=== PATIENT | male | born 1960 | race Caucasian/White ===

== ENCOUNTER 2019-02-02 14:51 | Inpatient (IN) | payer BC ==
[2019-02-02] MEDS ORDERED: SODIUM CHLORIDE 0.9% 1,000 ML IV STA ×2 (16:12)
--- NOTE | 2019-02-02 16:22 | ED ---
General Adult HPI - General Chief complaint: Extremity Problem,Nontraumatic Stated complaint: Leg infection Time Seen by Provider: 02/02/19 15:59 Source: patient, RN notes reviewed Mode of arrival: ambulatory Limitations: no limitations - History of Present Illness Initial comments: Patient is a 58-year-old male presented to the emergency room today with chief complaint of infection to the right lower extremity. Patient does admit that he's had similar infections in the past and usually antibiotics does work to improve it. He does not that he's been on antibiotics last 2 weeks. States currently on clindamycin over this past week. He states he was on a previous antibiotic but does not remember the name. He did follow-up family doctor today was advised come here to emergency room for admission for IV antibiotics and consult infectious disease. Patient does admit to pain locally to the area. Does admit redness. Rates pain 2/10. Denies any other complaints or symptoms. Patient denies any recent fever, chills, shortness of breath, chest pain, back pain, abdominal pain, nausea or vomiting, headaches or visual changes, or any other complaints. - Related Data Home Medications Medication Instructions Recorded Confirmed Albuterol Inhaler [Ventolin Hfa 1 - 2 puff INHALATION RT-Q6H PRN 02/02/19 Inhaler] Albuterol Nebulized [Ventolin 2.5 mg INHALATION RT-QID PRN 02/02/19 02/02/19 Nebulized] Fluticasone/Salmeterol [Advair 1 puff INHALATION RT-BID 02/02/19 02/02/19 250-50 Diskus] Allergies Allergy/AdvReac Type Severity Reaction Status Date / Time No Known Allergies Allergy Verified 02/02/19 16:20 Review of Systems ROS Statement: Those systems with pertinent positive or pertinent negative responses have been documented in the HPI. ROS Other: All systems not noted in ROS Statement are negative. Past Medical History Past Medical History: COPD History of Any Multi-Drug Resistant Organisms: None Reported Past Surgical History: Orthopedic Surgery Additional Past Surgical History / Comment(s): Laser, Spider bite Past Psychological History: No Psychological Hx Reported Smoking Status: Former smoker Past Alcohol Use History: Occasional Past Drug Use History: None Reported General Exam - General Exam Comments Initial Comments: General: The patient is awake and alert, in no distress, and does not appear acutely ill. Eye: There is normal conjunctiva bilaterally. No signs of icterus. Ears, nose, mouth and throat: There are moist mucous membranes and no oral lesions. Neck: The neck is supple, there is no tenderness or JVD. Cardiovascular: There is a regular rate and rhythm. No murmur, rub or gallop is appreciated. Respiratory: Lungs are clear to auscultation, respirations are non-labored, breath sounds are equal. No wheezes, stridor, rales, or rhonchi. Musculoskeletal: Normal ROM. Strength 5/5. Sensation intact. Pedal pulse 2+. Neurological: A&O x 3. CN II-XII intact, There are no obvious motor or sensory deficits. Coordination appears grossly intact. Speech is normal. Skin: Patient does have area of redness to the anterior aspect of left palafox. There is significant swelling when compared bilaterally to the left leg. Patient does have some tenderness to the posterior aspect of the calf. Psychiatric: Cooperative, appropriate mood & affect, normal judgment. Limitations: no limitations Course Vital Signs 02/02/19 15:18 Temperature 97.8 F Pulse Rate 75 Respiratory 20 Rate Blood Pressure 151/82 O2 Sat by Pulse 99 Oximetry Medical Decision Making - Medical Decision Making 58-year-old male presented to the emergency room immediately physician for out patient failure of cellulitis to the right lower leg. Also was obtained negative for any evidence of DVT. Patient's labs been reviewed. Patient started on Rocephin, vancomycin here in emergency room. Patient admitted to the hospital with consult to infectious disease. - Lab Data Result diagrams: 02/02/19 16:35 02/02/19 16:35 Lab Results 02/02/19 02/02/19 02/02/19 Range/Units 16:35 16:35 16:35 WBC 6.3 (3.8-10.6) k/uL RBC 5.21 (4.30-5.90) m/uL Hgb 14.8 (13.0-17.5) gm/dL Hct 46.8 (39.0-53.0) % MCV 89.7 (80.0-100.0) fL MCH 28.4 (25.0-35.0) pg MCHC 31.7 (31.0-37.0) g/dL RDW 13.2 (11.5-15.5) % Plt Count 355 (150-450) k/uL Neutrophils % 73 % Lymphocytes % 15 % Monocytes % 8 % Eosinophils % 1 % Basophils % 1 % Neutrophils # 4.6 (1.3-7.7) k/uL Lymphocytes # 0.9 L (1.0-4.8) k/uL Monocytes # 0.5 (0-1.0) k/uL Eosinophils # 0.1 (0-0.7) k/uL Basophils # 0.0 (0-0.2) k/uL Sodium 139 (137-145) mmol/L Potassium 4.5 (3.5-5.1) mmol/L Chloride 104 (98-107) mmol/L Carbon Dioxide 27 (22-30) mmol/L Anion Gap 8 mmol/L BUN 13 (9-20) mg/dL Creatinine 0.61 L (0.66-1.25) mg/dL Est GFR (CKD-EPI)AfAm >90 (>60 ml/min/1.73 sqM) Est GFR (CKD-EPI)NonAf >90 (>60 ml/min/1.73 sqM) Glucose 81 (74-99) mg/dL Plasma Lactic Acid Mike 1.1 (0.7-2.0) mmol/L Calcium 9.3 (8.4-10.2) mg/dL Total Bilirubin 0.7 (0.2-1.3) mg/dL AST 90 H (17-59) U/L ALT 81 H (21-72) U/L Alkaline Phosphatase 74 (38-126) U/L Total Protein 7.5 (6.3-8.2) g/dL Albumin 4.0 (3.5-5.0) g/dL Urine Color Urine Appearance (Clear) Urine pH (5.0-8.0) Ur Specific [place] (1.001-1.035) Urine Protein (Negative) Urine Glucose (UA) (Negative) Urine Ketones (Negative) Urine Blood (Negative) Urine Nitrite (Negative) Urine Bilirubin (Negative) Urine Urobilinogen (<2.0) mg/dL Ur Leukocyte Esterase (Negative) 02/02/19 Range/Units 16:35 WBC (3.8-10.6) k/uL RBC (4.30-5.90) m/uL Hgb (13.0-17.5) gm/dL Hct (39.0-53.0) % MCV (80.0-100.0) fL MCH (25.0-35.0) pg MCHC (31.0-37.0) g/dL RDW (11.5-15.5) % Plt Count (150-450) k/uL Neutrophils % % Lymphocytes % % Monocytes % % Eosinophils % % Basophils % % Neutrophils # (1.3-7.7) k/uL Lymphocytes # (1.0-4.8) k/uL Monocytes # (0-1.0) k/uL Eosinophils # (0-0.7) k/uL Basophils # (0-0.2) k/uL Sodium (137-145) mmol/L Potassium (3.5-5.1) mmol/L Chloride (98-107) mmol/L Carbon Dioxide (22-30) mmol/L Anion Gap mmol/L BUN (9-20) mg/dL Creatinine (0.66-1.25) mg/dL Est GFR (CKD-EPI)AfAm (>60 ml/min/1.73 sqM) Est GFR (CKD-EPI)NonAf (>60 ml/min/1.73 sqM) Glucose (74-99) mg/dL Plasma Lactic Acid Mike (0.7-2.0) mmol/L Calcium (8.4-10.2) mg/dL Total Bilirubin (0.2-1.3) mg/dL AST (17-59) U/L ALT (21-72) U/L Alkaline Phosphatase (38-126) U/L Total Protein (6.3-8.2) g/dL Albumin (3.5-5.0) g/dL Urine Color Yellow Urine Appearance Clear (Clear) Urine pH 6.0 (5.0-8.0) Ur Specific [place] 1.022 (1.001-1.035) Urine Protein Negative (Negative) Urine Glucose (UA) Negative (Negative) Urine Ketones Negative (Negative) Urine Blood Negative (Negative) Urine Nitrite Negative (Negative) Urine Bilirubin Negative (Negative) Urine Urobilinogen <2.0 (<2.0) mg/dL Ur Leukocyte Esterase Negative (Negative) Disposition Clinical Impression: Cellulitis, Failure of outpatient treatment Disposition: ADMITTED IP TO THIS HOSP Condition: Stable Is patient prescribed a controlled substance at d/c from ED?: No Referrals: Vicente Rodriguez MD [Primary Care Provider] - 1-2 days Time of Disposition: 19:29
[2019-02-02 17:30] LABS: Appearance,Urine Clear (Clear); Bilirubin,Urine Negative (Negative); Blood,Urine Negative (Negative); Color,Urine Yellow; Glucose,Urine (UA) Negative (Negative); Ketones,Urine Negative (Negative); Leukocyte Esterase,Urine Negative (Negative); Nitrite,Urine Negative (Negative); Protein,Urine Negative (Negative); Specific Gravity,Urine 1.022 (1.001-1.035); Urobilinogen,Urine <2.0 mg/dL (<2.0)
[2019-02-02 17:32] LABS: ALT 81 U/L (21-72); AST 90 U/L (17-59); Alkaline Phosphatase 74 U/L (38-126); Anion Gap 8 mmol/L; Blood Urea Nitrogen 13 mg/dL (9-20); Calcium 9.3 mg/dL (8.4-10.2); Carbon Dioxide 27 mmol/L (22-30); Chloride 104 mmol/L (98-107); Glucose 81 mg/dL (74-99); Potassium 4.5 mmol/L (3.5-5.1); Sodium 139 mmol/L (137-145); Total Bilirubin 0.7 mg/dL (0.2-1.3); Total Protein 7.5 g/dL (6.3-8.2)
[2019-02-02] MEDS ORDERED: VANCOMYCIN IV PER PHARMACY 1 EACH MISC MISCELLANE PRN (17:41)
[2019-02-02 17:45] LABS: Basophils % (A) 1 %; Eosinophils # (A) 0.1 k/uL (0-0.7); Eosinophils % (A) 1 %; HCT 46.8 % (39.0-53.0); HGB 14.8 gm/dL (13.0-17.5); Lymphocytes # (A) 0.9 k/uL (1.0-4.8); Lymphocytes % (A) 15 %; MCH 28.4 pg (25.0-35.0); MCHC 31.7 g/dL (31.0-37.0); MCV 89.7 fL (80.0-100.0); Mean Platelet Volume 6.6; Monocytes # (A) 0.5 k/uL (0-1.0); Monocytes % (A) 8 %; Neutrophils # (A) 4.6 k/uL (1.3-7.7); Neutrophils % (A) 73 %; Platelet Count 355 k/uL (150-450); RBC 5.21 m/uL (4.30-5.90); RDW 13.2 % (11.5-15.5); WBC 6.3 k/uL (3.8-10.6)
[2019-02-02] MEDS ORDERED: VANCOMYCIN 2,250 MG in SODIUM CHLORIDE 0.9% 500 ML 500 ML IVPB STA (18:42)
--- NOTE | 2019-02-02 18:57 | US ---
EXAMINATION TYPE: US venous doppler duplex LE RT DATE OF EXAM: 02/02/2019 5:59 PM COMPARISON: NONE CLINICAL HISTORY: pain. R/O DVT. Pain and swelling right leg x 2 weeks. Pt not on blood thinners. No hx of DVT. SIDE PERFORMED: Right TECHNIQUE: The lower extremity deep venous system is examined utilizing real time linear array sonog oswaldo with graded compression, doppler sonography and color-flow sonography. VESSELS IMAGED: External Iliac Vein (EIV) Common Femoral Vein Deep Femoral Vein Greater Saphenous Vein * Femoral Vein Popliteal Vein Small Saphenous Vein * Proximal Calf Veins (* superficial vessels) *Patient could not tolerate compression of distal femoral vein, but color flow is visualized. Right Leg: No evidence of DVT in the right lower extremity. Hypoechoic area with hyperechoic center seen right medial thigh at the level of the proximal femor al vein measurin.3 x 1.4 x 2.3 cm. IMPRESSION: No evidence of deep venous thrombosis in the right leg. Oval-shaped solid mass seen at th e medial thigh that could be a lipoma or enlarged lymph node.
[2019-02-02] MEDS ORDERED: NALOXONE 0.4 MG/ML 1 ML VIAL IV PRN (19:19)
[2019-02-02] MEDS ORDERED: SODIUM CHLORIDE 0.9% 1,000 ML IV ONE (19:24)
[2019-02-02] MEDS ORDERED: HYDROcodone/APAP 5-325MG 1 EACH TAB PO PRN (19:24)
[2019-02-02] MEDS ORDERED: ACETAMINOPHEN TAB 325 MG TAB PO PRN (19:24)
[2019-02-02] MEDS ORDERED: ONDANSETRON 4 MG/2 ML VIAL IVP PRN (19:24)
[2019-02-02] MEDS ORDERED: IBUPROFEN 600 MG TAB PO PRN (19:24)
[2019-02-02 22:16] VITALS: BMI 41.6
[2019-02-02] MEDS ORDERED: HYDROcodone/APAP 5-325MG 1 EACH TAB ONE (23:09)
[2019-02-03] MEDS: VANCOMYCIN 2,000 MG in SODIUM CHLORIDE 0.9% 500 ML 500 ML IVPB SCH ×3 (05:50→21:00)
[2019-02-03] MEDS ORDERED: HYDROmorphone 0.5 MG/0.5 ML SYRINGE IVP PRN (06:27)
[2019-02-03] MEDS: HEPARIN SODIUM,PORCINE 5,000 UNIT/ML 1 ML VIAL SQ SCH ×2 (07:38→21:00)
[2019-02-03] MEDS ORDERED: ALBUTEROL INHALER 60 PUFF/8 GM INHALER INHALATION PRN (16:28)
[2019-02-03] MEDS ORDERED: ALBUTEROL NEBULIZED 2.5 MG/3 ML INHALATION PRN (16:28)
[2019-02-03] MEDS: SYMBICORT 80-4.5 MCG INHALER INHALATION SCH (19:31)
--- NOTE | 2019-02-03 20:59 | PN ---
PROGRESS NOTE DATE OF SERVICE: 02/03/2019 This 58-year-old gentleman with acute right leg cellulitis and failure of outpatient treatment is being closely monitored. No chest pain. No palpitations. AST, ALT mildly elevated. On exam, alert and oriented x3. Pulse 77, blood pressure 143/91, respiration 18, temperature 97.4, pulse ox 92% on room air. HEENT: Conjunctivae normal. Oral mucosa moist. NECK: No jugular venous distention. No carotid bruit. No lymph node enlargement. CARDIOVASCULAR SYSTEM: S1, S2 muffled. RESPIRATORY SYSTEM: Breath sounds diminished at the bases. A few scattered rhonchi. No crackles. ABDOMEN: Soft, non-tender. LEGS: Right leg NERVOUS SYSTEM: No focal deficit. LABS: Not available. ASSESSMENT: 1. Acute right leg cellulitis with failure of outpatient treatment. 2. Chronic obstructive pulmonary disease. 3. Increased AST, ALT. 4. History of nicotine dependence. 5. FULL CODE. RECOMMENDATIONS AND DISCUSSION: In this 58-year-old gentleman who presented with multiple complex medical issues, we will monitor the patient closely, continue the current management, continue with symptomatic treatment. Otherwise, continue the broad-spectrum IV antibiotics. Infectious disease evaluation has been sought. Will continue to monitor. Repeat labs will be ordered. The exact etiology of elevated LFTs is unknown at this time. I would recommend resuming the home medications. Further recommendations to follow. MMABELINOL / RUDOLPHN: [id number] / MTDD
--- NOTE | 2019-02-03 21:14 | HP ---
HISTORY AND PHYSICAL CHIEF COMPLAINT: Pain and swelling of the right leg. HISTORY OF PRESENT ILLNESS: This 58-year-old gentleman who was admitted with a past history of COPD, history of DJD, nicotine dependence being followed by Dr. Beckford in the outpatient setting was noted to have significant pain and swelling for the last 6-7 days. Patient with increasing symptoms and other concerns, patient came to [facility] and admitted to the hospital for further evaluation and treatment. There is no history of any fever, rigors or chills. No history of headache, loss of consciousness or seizures. PAST MEDICAL HISTORY: History of COPD, history of nicotine dependence previously. MEDICATIONS: Home medications are: 1. Advair 1 puff b.i.d. 2. 2.5 q.i.d. p.r.n. 3. Ventolin HFA 1-2 puffs q.6h p.r.n. ALLERGIES: None. FAMILY HISTORY: History of sepsis in the family. SOCIAL HISTORY: Previous history of smoking. No history of current smoking. No alcohol intake. REVIEW OF SYSTEMS: ENT: No diminished hearing or vision. CARDIOVASCULAR: No angina or palpitations. RESPIRATION: No cough. GASTROINTESTINAL: Nausea or vomiting. : No dysuria. NERVOUS SYSTEM: No numbness or weakness. ALLERGY/IMMUNOLOGY: No asthma or hayfever. MUSCULOSKELETAL: As mentioned earlier. HEMATOLOGY/ONCOLOGY: No history of anemia. ENDOCRINE: No history of diabetes. CONSTITUTIONAL: As mentioned earlier DERMATOLOGY: Negative. RHEUMATOLOGY: Negative. PSYCHIATRY: As mentioned earlier. PHYSICAL EXAMINATION: The patient is alert and oriented times three. VITAL SIGNS: Pulse is 77. Blood pressure 143/91, respiration 18, temp 96.4, pulse ox 92 percent on room air. HEENT: Conjunctivae normal. Oral mucosa moist. NECK: No jugular venous distention. No carotid bruit. No lymph node enlargement. CARDIOVASCULAR: S1-S2 muffled. RESPIRATORY: Breath sounds diminished in the bases. No rhonchi. No crackles. ABDOMEN: Soft, nontender. No mass palpable. LEGS: Significant right leg cellulitis NERVOUS SYSTEM: Higher functions as mentioned earlier. Moves all 4 limbs. No focal motor or sensory deficits. SKIN: No ulcer, rash or bleeding. LYMPHATICS: No lymph nodes palpable in the neck, axillae or groin. JOINTS: No active deforming arthropathy. LABS: CBC within normal limits and AST is 90, ALT is 81. ASSESSMENT: 1. Acute right leg cellulitis with failure of outpatient treatment. 2. Increased AST/ALT. 3. History of chronic obstructive pulmonary disease. 4. History of degenerative joint disease. 5. History of nicotine dependence. RECOMMENDATIONS AND DISCUSSION: Recommend to continue current medications, continue with monitoring. Symptomatic treatment. Otherwise, at this time, I recommend continue broad spectrum IV antibiotics. We will obtain infectious disease evaluation. Follow the cultures. DVT prophylaxis. Guarded prognosis because of multiple complex medical issues. Further recommendations to follow. A copy of dictation being forwarded to Dr. Beckford who is the primary care physician. MMODL / IJN: [id number] / TASNEEM
--- NOTE | 2019-02-03 22:23 | P.CONS ---
History of Present Illness - Reason for Consult Consult date: 02/03/19 - Chief Complaint Pain right leg - History of Present Illness 58-year-old male who has a history of obesity, COPD presents with a many day history of increasing pain and swelling and discomfort to the right lower extremity. He. Was cared for in the outpatient setting and despite some local care and antibiotic therapy it did not improve. The pain became more severe and constantly sought care at the emergency center. It isn't there is evidence of a significant redness and swelling to the right lower extremity and consequently patient was admitted with failure of outpatient treatment and for further intervention. Duplex was performed without evidence of deep venous thrombosis of the right lower extremity. The patient relates he is feeling better. Fever seems to have improved. He is not having significant chills or rigors. Patient does relate he was a tobacco smoker stopping just 2 years ago with a many pack year history of smoking. He has had difficulties with his legs over time but this is the first time he has had an extensive infection to the limb. Deny other acute symptoms at this time. His chronic shortness of breath is stable and not worsened at this time Review of Systems HEENT:Denies headache or acute visual change. Denies sinus or mouth discomforts. Denies neck stiffness or pain. Denies significant oral cavity pain. Denies difficulty on swallowing. Lungs: Chronic shortness of breath that is not worse, he does have mild chronic cough without hemoptysis or much sputum production Cardiovascular: No chest pain at this time. He does have dyspnea with exertion with orthopnea and no syncope Gastrointestinal:Denies nausea, vomiting, diarrhea, constipation, hematemesis, melena, hematochezia. No no significant change of bowel habit noticed. Musculoskeletal: denies significant myalgias or arthralgias. No new joint swelling. Denies new back pain. Skin: As per the HPI redness swelling and discomfort right leg Neuro: Denies headache or visual change. Denies any new onset weakness or difficulty with ambulation. Denies falls or seizures. Psychiatric:Denies anxiety or depression. Endocrine: Denies significant fatigue, denies significant weight loss or weight gain. Past Medical History Past Medical History: COPD History of Any Multi-Drug Resistant Organisms: None Reported Past Surgical History: Orthopedic Surgery Additional Past Surgical History / Comment(s): Laser, Spider bite Past Psychological History: No Psychological Hx Reported Additional Psychological History / Comment(s): and lives with the and the family home. 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 Stopped tobacco smoking about 2 years ago. Denies significant alcohol or drug use. No animal exposures Smoking Status: Former smoker Past Alcohol Use History: Occasional Past Drug Use History: None Reported - Past Family History Mother Additional Family Medical History / Comment(s): sepsis Medications and Allergies Home Medications and Allergies Comment(s): Current Medications Acetaminophen (Tylenol Tab) 650 mg PO Q6HR PRN PRN Reason: Mild Pain or Fever > 100.5 Hydrocodone Bitart/Acetaminophen ([place] 5-325) 1 each PO Q4HR PRN PRN Reason: Moderate Pain Albuterol Sulfate (Ventolin Nebulized) 2.5 mg INHALATION RT-QID PRN PRN Reason: Shortness Of Breath Budesonide/Formoterol Fumarate (Symbicort 80-4.5 Mcg Inhaler) 2 puff INHALATION RT-BID [facility] Last Admin: 02/03/19 19:31 Dose: 2 puff Documented by: Heparin Sodium (Porcine) (Heparin) 5,000 unit SQ Q12HR [facility] Last Admin: 02/03/19 21:00 Dose: 5,000 unit Documented by: Hydromorphone HCl (Dilaudid) 0.5 mg IVP Q6HR PRN PRN Reason: Pain Ceftriaxone Sodium 1 gm/ (Sodium Chloride) 50 mls @ 100 mls/hr IVPB Q24H [facility] Last Admin: 02/03/19 18:12 Dose: 100 mls/hr Documented by: Vancomycin HCl 2,000 mg/ (Sodium Chloride) 500 mls @ 167 mls/hr IVPB Q8H [facility] Last Admin: 02/03/19 21:00 Dose: 167 mls/hr Documented by: Ibuprofen (Motrin) 600 mg PO Q6HR PRN PRN Reason: Mild Pain or Fever > 100.5 Miscellaneous Information (Vancomycin Trough Due) 0 each MISCELLANE DIRECTED ONE Stop: 02/04/19 05:01 Naloxone HCl (Narcan) 0.2 mg IV Q2M PRN PRN Reason: Opioid Reversal Ondansetron HCl (Zofran) 4 mg IVP Q8HR PRN PRN Reason: Nausea And Vomiting Silver Sulfadiazine (Silvadene Cream) 1 applic TOPICAL DAILY [facility] Last Admin: 02/03/19 07:38 Dose: 1 applic Documented by: Home Medications Medication Instructions Recorded Confirmed Type Albuterol Inhaler [Ventolin Hfa 1 - 2 puff INHALATION RT-Q6H PRN 02/02/19 02/02/19 History Inhaler] Albuterol Nebulized [Ventolin 2.5 mg INHALATION RT-QID PRN 02/02/19 02/02/19 History Nebulized] Fluticasone/Salmeterol [Advair 1 puff INHALATION RT-BID 02/02/19 02/02/19 History 250-50 Diskus] Allergies Allergy/AdvReac Type Severity Reaction Status Date / Time No Known Allergies Allergy Verified 02/02/19 16:20 Physical Exam Vitals: Vital Signs Temp Pulse Resp BP Pulse Ox 02/03/19 15:15 16 02/03/19 15:00 97.4 F L 77 18 143/91 92 L 02/03/19 06:09 97.6 F 67 22 114/75 96 02/02/19 22:15 98.2 F 73 20 125/79 98 Intake and Output 02/03/19 02/03/19 02/03/19 06:59 14:59 22:59 Output Total 500 1200 700 Balance -500 -1200 -700 Output: Urine 500 1200 700 Other: Voiding Method Toilet Toilet 58-year-old male who has severe obesity and relates that his severe discomfort in the limb is starting to improve. HEENT: Anicteric conjunctiva are pink and moist nasal mucosa grossly intact without significant lesions, there is no thrush. Neck: The neck is supple without significant lymphadenopathy or thyromegaly. Lungs: Good bilateral air entry without significant crackles or wheezing. There is no significant bronchial sounds. There is no egophony or dullness. Heart: Regular rate and rhythm with an audible S1-S2, no S3 no S4. There is no significant murmur click or rub, PMI was nondisplaced. Abdomen: Positive bowel sounds soft and nontender without palpable masses or organomegaly. There was no guarding or rebound. Extremities: The upper extremities have excellent pulses they are symmetric, no significant petechiae or telangiectasia. No splinter hemorrhages were noted. The left lower extremity is without acute open lesions. Throat looks really shows evidence the significant swelling there is some generalized erythema distinct tenderness. Due to the evidence of the cellulitis a Silvadene wrap has been requested which patient relates is ready started help his discomforts especially if he has to stand up. Neuro: Awake alert oriented to person place and time. There are no acute new gross focal sensory motor deficits. Results CBC & Chem 7: 02/02/19 16:35 02/02/19 16:35 Labs: Microbiology - Last 24 Hours (Table) 02/02/19 16:35 Blood Culture - Preliminary Blood No Growth after 24 hours Laboratory Results WBC 6.3 k/uL (3.8-10.6) 02/02/19 16:35 RBC 5.21 m/uL (4.30-5.90) 02/02/19 16:35 Hgb 14.8 gm/dL (13.0-17.5) 02/02/19 16:35 Hct 46.8 % (39.0-53.0) 02/02/19 16:35 MCV 89.7 fL (80.0-100.0) 02/02/19 16:35 MCH 28.4 pg (25.0-35.0) 02/02/19 16:35 MCHC 31.7 g/dL (31.0-37.0) 02/02/19 16:35 RDW 13.2 % (11.5-15.5) 02/02/19 16:35 Plt Count 355 k/uL (150-450) 02/02/19 16:35 Neutrophils % 73 % 02/02/19 16:35 Lymphocytes % 15 % 02/02/19 16:35 Monocytes % 8 % 02/02/19 16:35 Eosinophils % 1 % 02/02/19 16:35 Basophils % 1 % 02/02/19 16:35 Neutrophils # 4.6 k/uL (1.3-7.7) 02/02/19 16:35 Lymphocytes # 0.9 k/uL (1.0-4.8) L 02/02/19 16:35 Monocytes # 0.5 k/uL (0-1.0) 02/02/19 16:35 Eosinophils # 0.1 k/uL (0-0.7) 02/02/19 16:35 Basophils # 0.0 k/uL (0-0.2) 02/02/19 16:35 Sodium 139 mmol/L (137-145) 02/02/19 16:35 Potassium 4.5 mmol/L (3.5-5.1) 02/02/19 16:35 Chloride 104 mmol/L (98-107) 02/02/19 16:35 Carbon Dioxide 27 mmol/L (22-30) 02/02/19 16:35 Anion Gap 8 mmol/L 02/02/19 16:35 BUN 13 mg/dL (9-20) 02/02/19 16:35 Creatinine 0.61 mg/dL (0.66-1.25) L 02/02/19 16:35 Est GFR (CKD-EPI)AfAm >90 (>60 ml/min/1.73 sqM) 02/02/19 16:35 Est GFR (CKD-EPI)NonAf >90 (>60 ml/min/1.73 sqM) 02/02/19 16:35 Glucose 81 mg/dL (74-99) 02/02/19 16:35 Plasma Lactic Acid Mike 1.1 mmol/L (0.7-2.0) 02/02/19 16:35 Calcium 9.3 mg/dL (8.4-10.2) 02/02/19 16:35 Total Bilirubin 0.7 mg/dL (0.2-1.3) 02/02/19 16:35 AST 90 U/L (17-59) H 02/02/19 16:35 ALT 81 U/L (21-72) H 02/02/19 16:35 Alkaline Phosphatase 74 U/L (38-126) 02/02/19 16:35 Total Protein 7.5 g/dL (6.3-8.2) 02/02/19 16:35 Albumin 4.0 g/dL (3.5-5.0) 02/02/19 16:35 Urine Color Yellow 02/02/19 16:35 Urine Appearance Clear (Clear) 02/02/19 16:35 Urine pH 6.0 (5.0-8.0) 02/02/19 16:35 Ur Specific [place] 1.022 (1.001-1.035) 02/02/19 16:35 Urine Protein Negative (Negative) 02/02/19 16:35 Urine Glucose (UA) Negative (Negative) 02/02/19 16:35 Urine Ketones Negative (Negative) 02/02/19 16:35 Urine Blood Negative (Negative) 02/02/19 16:35 Urine Nitrite Negative (Negative) 02/02/19 16:35 Urine Bilirubin Negative (Negative) 02/02/19 16:35 Urine Urobilinogen <2.0 mg/dL (<2.0) 02/02/19 16:35 Ur Leukocyte Esterase Negative (Negative) 02/02/19 16:35 Microbiology 02/02/19 16:35 Blood Blood Culture - Preliminary No Growth after 24 hours Comments: Duplex right lower extremity without evidence of deep venous thrombosis is evidence of potential small lymph node. Assessment and Plan (1) Cellulitis Narrative/Plan: 58-year-old male with history of obesity relates to the sudden onset of significant pain and swelling to the right lower extremity. Despite some local care and evaluation in the outpatient setting he had no improvement. The pain actually worsened and because of this he sought care in the emergency center. There was evidence of any deep venous thrombosis but his extensive cellulitis was found the patient has been admitted. Antibiotic therapy has been initiated with Rocephin and vancomycin. At this time cultures are pending but are negative so far. The patient did have leukocytosis it seems to be im proving. Local wound care is with Silvadene rolled gauze and Balbir wrap from the foot to the knee applied daily to help with the cellulitis process. Duplex without evidence of deep venous thrombosis. Hopefully with elevation wrap and antibiotic therapy will rapidly improve with the transition to an outpatient course of therapy. The patient has a long-standing history of tobacco use and would benefit from arterial Dopplers to evaluate for significant peripheral vascular disease. Multivitamin with zinc is added to his regiment. Current Visit: Yes Status: Acute Code(s): L03.90 - CELLULITIS, UNSPECIFIED SNOMED Code(s): 159453966 (2) Failure of outpatient treatment Current Visit: Yes Status: Acute Code(s): Z78.9 - OTHER SPECIFIED HEALTH STATUS SNOMED Code(s): 920149944
[2019-02-04] MEDS ORDERED: VANCOMYCIN TROUGH DUE 1 EACH MISC MISCELLANE ONE (05:00)
[2019-02-04] MEDS: VANCOMYCIN 2,000 MG in SODIUM CHLORIDE 0.9% 500 ML 500 ML IVPB SCH (06:30)
[2019-02-04] MEDS: HEPARIN SODIUM,PORCINE 5,000 UNIT/ML 1 ML VIAL SQ SCH (07:29)
[2019-02-04] MEDS: SYMBICORT 80-4.5 MCG INHALER INHALATION SCH (08:57)
[2019-02-04] MEDS ORDERED: MULTIVITAMINS, THERA 1 EACH TAB PO SCH (09:00)
--- NOTE | 2019-02-04 14:10 | P.DS ---
Providers Date of admission: 02/02/19 19:08 Attending physician: Tashi Petit Consults: 02/02/19 19:24 Consult Physician Stat Consulting Provider: Rafael Bonilla Consult Reason/Comments: Cellulitis Do you want consulting provider notified?: Yes [facility] Course: 58-year-old gentleman was admitted with platelets colitis failed outpatient therapy patient here was treated with Rocephin and vancomycin improvement in cellulitis patient is cleared for discharge from my infectious disease perspective patient will be discharged today. Mild or specific area elevation of AST and ALT distal to be repeated as an outpatient no further intervention at this time. PHYSICAL EXAMINATION: GENERAL: The patient is alert and oriented x3, not in any acute distress. Obese HEENT: Pupils are round and equally reacting to light. EOMI. No scleral icterus. No conjunctival pallor. Normocephalic, atraumatic. No pharyngeal erythema. No thyromegaly. CARDIOVASCULAR: S1 and S2 present. No murmurs, rubs, or gallops. PULMONARY: Chest is clear to auscultation, no wheezing or crackles. ABDOMEN: Soft, nontender, nondistended, normoactive bowel sounds. No palpable organomegaly. MUSCULOSKELETAL: No joint swelling or deformity. EXTREMITIES: No cyanosis, clubbing, right lower extremity cellulitic improved cellulitis does have an Balbir bandage still has swelling which is expected to im prove. NEUROLOGICAL: Gross neurological examination did not reveal any focal deficits. SKIN: No rashes. For other chronic medical problems hospice physician course please refer to dictation from Dr. Petit from yesterday Patient Condition at Discharge: Stable Plan - Discharge Summary New Discharge Prescriptions: New Ibuprofen [Motrin] 400 mg PO Q6HR PRN #20 tab PRN Reason: Mild Pain Or Fever > 100.5 SILVER sulfADIAZINE CREAM [Silvadene Cream] 1 applic TOPICAL DAILY #14 applic Acetaminophen Tab [Tylenol] 650 mg PO Q6HR PRN #30 tab PRN Reason: Mild Pain Or Fever > 100.5 Ranitidine HCl [Zantac] 150 mg PO BID #30 tab Cefuroxime Axetil [Ceftin] 500 mg PO BID #30 tab Continue Fluticasone/Salmeterol [Advair 250-50 Diskus] 1 puff INHALATION RT-BID Albuterol Nebulized [Ventolin Nebulized] 2.5 mg INHALATION RT-QID PRN PRN Reason: Shortness Of Breath Albuterol Inhaler [Ventolin Hfa Inhaler] 1 - 2 puff INHALATION RT-Q6H PRN PRN Reason: Shortness Of Breath Discharge Medication List Albuterol Inhaler [Ventolin Hfa Inhaler] 1 - 2 puff INHALATION RT-Q6H PRN 02/02/19 [History] Albuterol Nebulized [Ventolin Nebulized] 2.5 mg INHALATION RT-QID PRN 02/02/19 [History] Fluticasone/Salmeterol [Advair 250-50 Diskus] 1 puff INHALATION RT-BID 02/02/19 [History] Acetaminophen Tab [Tylenol] 650 mg PO Q6HR PRN #30 tab 02/04/19 [Rx] Cefuroxime Axetil [Ceftin] 500 mg PO BID #30 tab 02/04/19 [Rx] Ibuprofen [Motrin] 400 mg PO Q6HR PRN #20 tab 02/04/19 [Rx] Ranitidine HCl [Zantac] 150 mg PO BID #30 tab 02/04/19 [Rx] SILVER sulfADIAZINE CREAM [Silvadene Cream] 1 applic TOPICAL DAILY #14 applic 02/04/19 [Rx] Follow up Appointment(s)/Referral(s): Vicente Rodriguez MD [Primary Care Provider] - 02/08/19 11:00 am Ambulatory/Diagnostic Orders: Miscellaneous Therapy Services Order [THER.AMB] Location: None Selected Patient Instructions/Handouts: Cellulitis (DC) Activity/Diet/Wound Care/Special Instructions: Regular diet. Activity as tolerated, elevate right leg at rest. After showering, apply Silvedene cream and kerlix wrap followed with BALBIR bandage. Wrap from foot to knee. Do this daily. Discharge Disposition: HOME SELF-CARE
[2019-02-04 14:51] VITALS: BP 127/82; PULSE 69; RESP 16; TEMP 97.6
[2019-02-04] MEDS ORDERED: VANCOMYCIN 2,000 MG in SODIUM CHLORIDE 0.9% 500 ML 500 ML IVPB SCH (18:00)
--- NOTE | 2019-02-04 22:52 | P.PN ---
Subjective Progress Note Date: 02/04/19 58-year-old male who has a history of obesity, COPD presents with a many day history of increasing pain and swelling and discomfort to the right lower extremity. He. Was cared for in the outpatient setting and despite some local care and antibiotic therapy it did not improve. The pain became more severe and constantly sought care at the emergency center. It isn't there is evidence of a significant redness and swelling to the right lower extremity and consequently patient was admitted with failure of outpatient treatment and for further intervention. Duplex was performed without evidence of deep venous thrombosis of the right lower extremity. The patient relates he is feeling better. Fever seems to have improved. He is not having significant chills or rigors. Patient does relate he was a tobacco smoker stopping just 2 years ago with a many pack year history of smoking. He has had difficulties with his legs over time but this is the first time he has had an extensive infection to the limb. Deny other acute symptoms at this time. His chronic shortness of breath is stable and not worsened at this time 02/04/2019 the patient has had significant improvement over the last day. Pain is much improved. Redness is improved. [place] well with topical therapy wraps and elevation. He is having no fever or chills, duplex negative for deep venous thrombosis. Objective - Vital Signs Vital signs: Vital Signs Temp 97.6 F 02/04/19 13:03 Pulse 69 02/04/19 13:03 Resp 16 02/04/19 13:03 BP 127/82 02/04/19 13:03 Pulse Ox 97 02/04/19 13:03 Intake & Output 02/04/19 02/04/19 02/05/19 06:59 18:59 06:59 Intake Total 1000 Output Total 2400 Balance -2400 1000 Intake: Oral 1000 Output: Urine 2400 Other: Voiding Method Toilet Toilet # Voids 3 - Exam 58-year-old male who has severe obesity and relates that his severe discomfort in the limb is starting to improve. HEENT: Anicteric conjunctiva are pink and moist nasal mucosa grossly intact without significant lesions, there is no thrush. Neck: The neck is supple without significant lymphadenopathy or thyromegaly. Lungs: Good bilateral air entry without significant crackles or wheezing. There is no significant bronchial sounds. There is no egophony or dullness. Heart: Regular rate and rhythm with an audible S1-S2, no S3 no S4. There is no significant murmur click or rub, PMI was nondisplaced. Abdomen: Positive bowel sounds soft and nontender without palpable masses or organomegaly. There was no guarding or rebound. Extremities: The upper extremities have excellent pulses they are symmetric, no significant petechiae or telangiectasia. No splinter hemorrhages were noted. The left lower extremity is without acute open lesions. The right lower extremity is now considerably improved. Swelling is nearly resolved. The gener alized erythema has resolved to just a small patch of mild erythema anteriorly with a small area of tenderness posteriorly. There is no ascending erythema or lymphangitis. No significant lymphadenopathy is noted. Markedly improved. Neuro: Awake alert oriented to person place and time. There are no acute new gross focal sensory motor deficits. - Labs CBC & Chem 7: 02/02/19 16:35 02/04/19 05:30 Labs: Abnormal Lab Results - Last 24 Hours (Table) 02/04/19 Range/Units 05:30 Creatinine 0.63 L (0.66-1.25) mg/dL Microbiology - Last 24 Hours (Table) 02/02/19 16:35 Blood Culture - Preliminary Blood No Growth after 48 hours Laboratory Results WBC 6.3 k/uL (3.8-10.6) 02/02/19 16:35 RBC 5.21 m/uL (4.30-5.90) 02/02/19 16:35 Hgb 14.8 gm/dL (13.0-17.5) 02/02/19 16:35 Hct 46.8 % (39.0-53.0) 02/02/19 16:35 MCV 89.7 fL (80.0-100.0) 02/02/19 16:35 MCH 28.4 pg (25.0-35.0) 02/02/19 16:35 MCHC 31.7 g/dL (31.0-37.0) 02/02/19 16:35 RDW 13.2 % (11.5-15.5) 02/02/19 16:35 Plt Count 355 k/uL (150-450) 02/02/19 16:35 Neutrophils % 73 % 02/02/19 16:35 Lymphocytes % 15 % 02/02/19 16:35 Monocytes % 8 % 02/02/19 16:35 Eosinophils % 1 % 02/02/19 16:35 Basophils % 1 % 02/02/19 16:35 Neutrophils # 4.6 k/uL (1.3-7.7) 02/02/19 16:35 Lymphocytes # 0.9 k/uL (1.0-4.8) L 02/02/19 16:35 Monocytes # 0.5 k/uL (0-1.0) 02/02/19 16:35 Eosinophils # 0.1 k/uL (0-0.7) 02/02/19 16:35 Basophils # 0.0 k/uL (0-0.2) 02/02/19 16:35 Sodium 139 mmol/L (137-145) 02/02/19 16:35 Potassium 4.5 mmol/L (3.5-5.1) 02/02/19 16:35 Chloride 104 mmol/L (98-107) 02/02/19 16:35 Carbon Dioxide 27 mmol/L (22-30) 02/02/19 16:35 Anion Gap 8 mmol/L 02/02/19 16:35 BUN 13 mg/dL (9-20) 02/02/19 16:35 Creatinine 0.63 mg/dL (0.66-1.25) L 02/04/19 05:30 Est GFR (CKD-EPI)AfAm >90 (>60 ml/min/1.73 sqM) 02/04/19 05:30 Est GFR (CKD-EPI)NonAf >90 (>60 ml/min/1.73 sqM) 02/04/19 05:30 Glucose 81 mg/dL (74-99) 02/02/19 16:35 Plasma Lactic Acid Mike 1.1 mmol/L (0.7-2.0) 02/02/19 16:35 Calcium 9.3 mg/dL (8.4-10.2) 02/02/19 16:35 Total Bilirubin 0.7 mg/dL (0.2-1.3) 02/02/19 16:35 AST 90 U/L (17-59) H 02/02/19 16:35 ALT 81 U/L (21-72) H 02/02/19 16:35 Alkaline Phosphatase 74 U/L (38-126) 02/02/19 16:35 Total Protein 7.5 g/dL (6.3-8.2) 02/02/19 16:35 Albumin 4.0 g/dL (3.5-5.0) 02/02/19 16:35 Urine Color Yellow 02/02/19 16:35 Urine Appearance Clear (Clear) 02/02/19 16:35 Urine pH 6.0 (5.0-8.0) 02/02/19 16:35 Ur Specific [place] 1.022 (1.001-1.035) 02/02/19 16:35 Urine Protein Negative (Negative) 02/02/19 16:35 Urine Glucose (UA) Negative (Negative) 02/02/19 16:35 Urine Ketones Negative (Negative) 02/02/19 16:35 Urine Blood Negative (Negative) 02/02/19 16:35 Urine Nitrite Negative (Negative) 02/02/19 16:35 Urine Bilirubin Negative (Negative) 02/02/19 16:35 Urine Urobilinogen <2.0 mg/dL (<2.0) 02/02/19 16:35 Ur Leukocyte Esterase Negative (Negative) 02/02/19 16:35 Vancomycin Trough 20.7 ug/mL 02/04/19 05:30 Microbiology 02/02/19 16:35 Blood Blood Culture - Preliminary No Growth after 48 hours Assessment and Plan (1) Cellulitis Narrative/Plan: 58-year-old male with history of obesity relates to the sudden onset of significant pain and swelling to the right lower extremity. Despite some local care and evaluation in the outpatient setting he had no improvement. The pain actually worsened and because of this he sought care in the emergency center. There was evidence of any deep venous thrombosis but his extensive cellulitis was found the patient has been admitted. Antibiotic therapy has been initiated with Rocephin and vancomycin. At this time cultures are pending but are negative so far. The patient did have leukocytosis it seems to be improving. Local wound care is with Silvadene rolled gauze and Balbir wrap from the foot to the knee applied daily to help with the cellulitis process. Duplex without evidence of deep venous thrombosis. Hopefully with elevation wrap and antibiotic therapy will rapidly improve with the transition to an outpatient course of therapy. The patient has a long-standing history of tobacco use and would benefit from arterial Dopplers to evaluate for significant peripheral vascular disease. Multivitamin with zinc is added to his regiment. 02/04/2019 patient has had a marked improvement of the cellulitis of the right lower extremity. Still has some localized tenderness. But the extensive erythema and swelling have markedly improved with elevation wrap with Silvadene. Patient will continue as at home. Primary likely allow him to return to work on Friday. He should continue with current treatment till then. Oral antibiotic therapy with cefuroxime was sent to the pharmacy. Should continue the multivitamin. Arterial Dopplers reveal evidence of normal ankle brachial index. Ready for discharge to home. Patient is improved at a rate faster than expected. Status: Acute Code(s): L03.90 - CELLULITIS, UNSPECIFIED SNOMED Code(s): 892589343 (2) Failure of outpatient treatment Status: Acute Code(s): Z78.9 - OTHER SPECIFIED HEALTH STATUS SNOMED Code(s): 115226156
== END 2019-02-04 17:12 | disposition home or self-care (01) | DRG 603 ==
LOC: EC 14:51 → 4MS4W 19:08
PROVIDERS: ADMIT Hospitalist; ATTEND Hospitalist
DX: L03.115 Cellulitis of right lower limb (principal); Z68.41 Body mass index [BMI] 40.0-44.9, adult; Z87.891 Personal history of nicotine dependence; J44.9 Chronic obstructive pulmonary disease, unspecified; Z79.899 Other long term (current) drug therapy; E66.01 Morbid (severe) obesity due to excess calories; M19.90 Unspecified osteoarthritis, unspecified site
CPT/HCPCS: 36415; 80053; 80202; 81003; 82565; 83605; 85025; 87040; 93922; 94640; 96361; 96365; 96366; 96367; 99284

== ENCOUNTER 2020-09-07 09:05 | Day surgery (SDC) | payer BC ==
[2020-09-06 08:06] VITALS: BMI 44.3
[~2020-09-07 09:05] MED LIST: LACTATED RINGERS 1,000 ML IV SCH; LIDOCAINE 1% (10MG/ML) FOR IV START INTRADERMA PRN
[2020-09-07 09:43] VITALS: TEMP 97.8
[2020-09-07] MEDS ORDERED: LIDOCAINE 1% INJ 10MG/ML (20 ML MDV) ONE (10:17)
[2020-09-07] MEDS ORDERED: PROPOFOL 10 MG/ML 20 ML VIAL IV ONE (10:17)
[2020-09-07] MEDS ORDERED: SODIUM CHLORIDE 0.9% 250 ML IV ONE (11:11)
--- NOTE | 2020-09-07 11:24 | P.PCN ---
Date of Procedure: 09/07/20 Description of Procedure: BRIEF HISTORY: Patient is a 59-year-old male presented for outpatient colonoscopy for positive Cologard. Patient denies any change in bowel habits, blood per rectum or abdominal pain. No family history of colon cancer. PROCEDURE PERFORMED: Colonoscopy with polypectomy. PREOPERATIVE DIAGNOSIS: Positive Cologard. No prior colonoscopy. ESTIMATED BLOOD LOSS: Minimal. IV sedation per Anesthesia. PROCEDURE: After informed consent was obtained, the patient, was brought into the endoscopy unit. IV sedation was administered by Anesthesia under continuous monitoring. Digital rectal examination was normal. Initially the Olympus CF-190 flexible video colonoscope was then inserted in the rectum, gradually advanced into the cecum without any difficulty. Careful examination was performed as the scope was gradually being withdrawn. Ileocecal valve and the appendiceal orifice were visualized and appeared normal. Prep was excellent. Mucosa of the cecum, ascending colon, transverse colon, descending colon, sigmoid colon, and rectum appeared normal. 4 flat polyps measuring 4 mm to 6 mm in size removed from the descending colon and sigmoid colon 3. Retroflexion was performed in the rectum and no lesions were seen. The patient tolerated the procedure well. IMPRESSION: 4 polyps removed with cold snare polypectomy from the descending colon and sigmoid colon 3. RECOMMENDATIONS: Findings of this examination were discussed with the patient as family. Okay to resume diet. Okay to resume medications. Await pathology from polypectomy. Recommend repeat colonoscopy in 5 years for colon polyps, pending pathology.
[2020-09-07 12:13] VITALS: BP 130/77; PULSE 77; RESP 18
== END 2020-09-07 12:14 | disposition home or self-care (01) ==
LOC: ORWHC2ENDO 09:05
PROVIDERS: ATTEND Internal Medicine
DX: D12.4 Benign neoplasm of descending colon (principal); K63.5 Polyp of colon; J44.9 Chronic obstructive pulmonary disease, unspecified; K21.9 Gastro-esophageal reflux disease without esophagitis; Z87.891 Personal history of nicotine dependence; Z98.890 Other specified postprocedural states; Z79.899 Other long term (current) drug therapy; Z79.51 Long term (current) use of inhaled steroids
CPT/HCPCS: 88305; 45385; J2001; J2704